=== PATIENT | female | born 1990 | race Caucasian/White ===

== ENCOUNTER → 2022-12-09 | Emergency (ER) | payer SELFPAY ==
[2022-12-09 21:22] VITALS: BP 159/89; PULSE 76; RESP 18; TEMP 36.3; O2SAT 98
[2022-12-09 21:38] LABS: Basophils Absolute Auto 0.1 K/mm3 (0.0-0.1); Basophils Percent Auto 0.5 % (0.2-1.2); Eosinophils Absolute Auto 0.3 K/mm3 (0-0.3); Eosinophils Percent Auto 1.4 % (0-4.4); Hematocrit 42.1 % (37.0-47.0); Hemoglobin 15.2 g/dL (12.0-15.0); Immature Granulocyte Absolute 0.08 K/mm3 (0.00-0.031); Immature Granulocyte Percent A 0.4 % (0-0.5); Lymphocytes Absolute Auto 3.47 K/mm3 (0.9-3.2); Mean Corpuscular HGB Conc 36.1 g/dl (32-36); Mean Corpuscular Hemoglobin 31.3 pg (26-34); Mean Corpuscular Volume 86.6 fl (80-100); Mean Platelet Volume 9.8 fl (7.4-10.4); Monocytes Absolute Auto 1.1 K/mm3 (0.1-0.6); Monocytes Percent Auto 6.1 % (2.6-8.5); Neutrophils Absolute Auto 13.2 K/mm3 (1.3-6.7); Neutrophils Percent Auto 72.6 % (45.5-73.1); Platelet Count Result 233 k/mm3 (150-375); Red Blood Count 4.86 M/mm3 (4.2-5.4); Red Cell Distribution Width 13.1 % (11.5-14.5); White Blood Count 18.3 K/mm3 (4.5-10.0)
[2022-12-09 21:49] LABS: Alanine Aminotransferase 41 U/L (6-35); Albumin Level 4.2 g/dL (3.5-5.1); Alkaline Phosphatase 125 U/L (38-126); Anion Gap 7 mmol/L (8-16); Aspartate Amino Transferase 43 U/L (14-36); Bilirubin,Total 1.5 mg/dL (0.2-1.3); Blood Urea Nitrogen 11 mg/dL (7-17); Calcium 8.7 mg/dL (8.4-10.2); Carbon Dioxide 23 mmol/L (22-30); Chloride 107 mmol/L (98-107); Estimated CRCL calculation 143 ml/min; Estimated Glomerular Filt Rate > 60; Glucose 115 mg/dL (65-110); Lipase 195 U/L (23-300); Potassium 3.4 mmol/L (3.4-5.0); Sodium 137 mmol/L (137-145)
[2022-12-09 22:09] LABS: Appearance Urine Turbid (Clear); Bacteria Urine 4+ /hpf; Bilirubin Urine Negative (Negative); Blood Urine 3+ (Negative); Color Urine Dark Yellow (Yellow); Glucose Urine UA Negative (Negative); Hyaline Casts Urine Present /lpf; Ketones Urine Negative (Negative); Leukocyte Esterase Ur 2+ LEU/UL (Negative); Nitrate Urine Negative (Negative); Protein Urine 1+ mg/dL (Negative); RBC Urine >100 /hpf (0-2); Squamous Epithelial Cell Urine Moderate /hpf (Few); WBC Urine 21-50 /hpf; pH Urine 6.5 (5.0-9.0)
[2022-12-09 22:11] LABS: Add Urine Microscopic? YES
--- NOTE | 2022-12-09 22:15 | PC.NURSE ---
Patient up to triage to ask about the wait. Patient informed of how many patient were in the waiting room but it was communicated that wait times can not be predicated due to the very nature of the ER. Patient stated I'm not waiting here. I'm in too much pain. Patient ambulatory. Respirations regular and non-labored. Skin pink. Patient speaking in full sentences. Encouraged to stay for evaluation but she declined. Patient was encouraged to return with any worsening symptoms or additional concerns.
== END | disposition left against medical advice (07) ==
PROVIDERS: Emergency Provider Preventive Medicine Aerospace Medicine
DX: R10.9 Unspecified abdominal pain (principal)
CPT/HCPCS: 36415; 80053; 81001; 83690; 85025; 87086; 87088; 99199

== ENCOUNTER 2023-03-22 18:22 | Inpatient (IN) | payer MEDICAID, SELFPAY ==
[2023-03-22] VITALS (8 sets, daily range): BP systolic 137–151; BP diastolic 95–102; PULSE 97–106; RESP 12–17; TEMP 36.4; O2SAT 97–100
--- NOTE | 2023-03-22 21:31 | ECG_ITS ---
Measurements Intervals [place] Rate: 100 P: 77 SD: 150 QRS: 40 QRSD: 105 T: 26 QT: 333 QTc: 429 Interpretive Statements SINUS TACHYCARDIA DELAYED PRECORDIAL R/S TRANSITION BASELINE ARTIFACT- I, III, AVR, AVL, AVF, V1-V6 BORDERLINE ECG NO PREVIOUS ECG AVAILABLE FOR COMPARISON Electronically Signed On 03-23-2023 7:11:08 CDT by Francisco Alcantara D.O.
[2023-03-22 21:42] LABS: Basophils Absolute Auto 0.1 K/mm3 (0.0-0.1); Basophils Percent Auto 1.1 % (0.2-1.2); Eosinophils Absolute Auto 0.2 K/mm3 (0-0.3); Eosinophils Percent Auto 2.7 % (0-4.4); Hematocrit 54.1 % (37.0-47.0); Hemoglobin 18.6 g/dL (12.0-15.0); Immature Granulocyte Absolute 0.01 K/mm3 (0.00-0.031); Immature Granulocyte Percent A 0.1 % (0-0.5); Lymphocytes Absolute Auto 2.76 K/mm3 (0.9-3.2); Lymphocytes Percent Auto 39.1 % (18.3-44.2); Mean Corpuscular HGB Conc 34.4 g/dl (32-36); Mean Corpuscular Hemoglobin 30.8 pg (26-34); Mean Corpuscular Volume 89.6 fl (80-100); Mean Platelet Volume 9.4 fl (7.4-10.4); Monocytes Absolute Auto 0.6 K/mm3 (0.1-0.6); Monocytes Percent Auto 9.1 % (2.6-8.5); Neutrophils Absolute Auto 3.4 K/mm3 (1.3-6.7); Neutrophils Percent Auto 47.9 % (45.5-73.1); Platelet Count Result 204 k/mm3 (150-375); Red Blood Count 6.04 M/mm3 (4.2-5.4); Red Cell Distribution Width 18.5 % (11.5-14.5); White Blood Count 7.1 K/mm3 (4.5-10.0)
[2023-03-22 21:49] LABS: Appearance Urine Cloudy (Clear); Bacteria Urine 4+ /hpf; Bilirubin Urine Negative (Negative); Blood Urine 2+ (Negative); Color Urine Dark Yellow (Yellow); Glucose Urine UA Negative (Negative); Ketones Urine Negative (Negative); Leukocyte Esterase Ur 3+ LEU/UL (Negative); Nitrate Urine Negative (Negative); Non Pathogenic Casts 0-2; Protein Urine 1+ mg/dL (Negative); RBC Urine 0-2 /hpf (0-2); Squamous Epithelial Cell Urine Moderate /hpf (Few); WBC Urine 21-50 /hpf; pH Urine 6.5 (5.0-9.0)
[2023-03-22 21:50] LABS: Add Urine Microscopic? YES
[2023-03-22 21:53] LABS: Alanine Aminotransferase 213 U/L (6-35); Albumin Level 4.7 g/dL (3.5-5.1); Alkaline Phosphatase 161 U/L (38-126); Anion Gap 11 mmol/L (8-16); Aspartate Amino Transferase 386 U/L (14-36); Bilirubin,Total 2.2 mg/dL (0.2-1.3); Blood Urea Nitrogen 4 mg/dL (7-17); Calcium 8.9 mg/dL (8.4-10.2); Carbon Dioxide 30 mmol/L (22-30); Chloride 102 mmol/L (98-107); Estimated Glomerular Filt Rate > 60; Glucose 103 mg/dL (65-110); Partial Thromboplastin Time 27.1 SECONDS (22.3-36.8); Potassium 3.2 mmol/L (3.4-5.0); Prothrombin Time 13.9 Seconds (11.1-14.7); Sodium 143 mmol/L (137-145)
[2023-03-22 23:08] LABS: Ethanol 369 mg/dL (<10)
[2023-03-22] MEDS: CEPHALEXIN 500 MG CAPSULE PO (23:10)
[2023-03-22] MEDS: FAMOTIDINE 20 MG TABLET PO (23:10)
[2023-03-22] MEDS: SODIUM CHLORIDE 0.9% IV 1,000 ML 999 ML IV CONT (23:11)
[2023-03-22] MEDS: diazePAM INJ (*CRX) 10 MG/2 ML SYRINGE IV PUSH (23:11)
[2023-03-22] MEDS: POTASSIUM CHLORIDE 20 MEQ PACKET (FOR LIQUID) 40 MEQ PO (23:11)
--- NOTE | 2023-03-22 23:25 | ED.GENADULT ---
HPI - General Adult General Chief complaint: Alcohol Stated complaint: etoh Time Seen by Provider: 03/22/23 21:59 History of Present Illness HPI narrative: This is a 32-year-old female presenting to ED with chief complaint of alcohol use disorder. Patient says that she has been binge drinking for the last 3 days. She is here because she wants to get help because she would like to stop drinking. Patient says she has been drinking about a 5th every day and drink a 5th before she arrived here today. Patient states that sometimes she will get shaky when she stops drinking but has never been hospitalized for withdrawal. Patient denies SI or HI but is complaining of anxiety. Patient has some epigastric abdominal discomfort. No nausea or vomiting. No other complaints Related Data Allergies Allergy/AdvReac Type Severity Reaction Status Date / Time amoxicillin Allergy Hives Verified 12/09/22 21:12 [facility] Past Medical History Medical History ETOHism Exam Narrative: APPEARANCE: No apparent distress. the patient is A&O x4. Head: atraumatic. EYES: EOMI, NOSE: Atraumatic NECK: Trachea midline RESPIRATORY: No increased rate of breathing Clear to auscultation CARDIOVASCULAR: RRR, ABDOMINAL: Non-distended, obese with mild tenderness in the epigastric area with no guarding or rebound MUSCULOSKELETAl: No obvious deformities NEURO: Alert. Moving 4/4 extremities SKIN:: Warm, dry. Normal color PSYCHIATRIC: anxious Course Course Emergency Course: Patient arrived highly intoxicated. She was originally given IV fluids, potassium repletion, and Valium for her anxiety. We were unable to find someone to pick her up to take her home. Eventually around 4:30 a.m. she developed tremors and had a CIWA score of 12. Patient is given 500 mg of phenobarbital. She will be admitted to the hospital for further management Vital Signs Vital signs: Vital Signs Temperature 97.6 F 03/22/23 18:44 Pulse Rate 102 H 03/22/23 18:44 Respiratory Rate 17 03/22/23 18:44 Blood Pressure 147/102 H 03/22/23 18:44 Pulse Oximetry 100 03/22/23 18:44 Oxygen Delivery Room Air 03/22/23 18:44 Temperature 97.6 F 03/22/23 18:44 Pulse Rate 108 H 03/23/23 04:12 Respiratory Rate 20 03/23/23 04:12 Blood Pressure 156/111 H 03/23/23 04:12 Pulse Oximetry 100 03/23/23 04:12 Oxygen Delivery Room Air 03/22/23 18:44 Medical Decision Making MDM Narrative Medical decision making narrative: -Presentation: 32-year-old female presenting intoxicated. She wants help with her alcohol use disorder. She is concerned for withdrawal although at this time she has no symptoms of withdrawal. -DDX includes but is not limited to: Alcohol intoxication, alcoholic ketoacidosis, alcoholic gastritis, alcoholic hepatitis, anxiety -Co-morbidities complicating care: obesity, alcohol use disorder -Social determinants of health: unemployed due to alcohol use, lives with her mother -External Chart Review: none -Hx from independent Sources: none -Independent interpretation of studies: CBC showed hemoglobin of 18.6 which is likely due to hemoconcentration. Metabolic panel shows elevations in AST ALT in an alcohol abuse pattern. Urine is indicative infection in the patient be treated with Keflex. Alcohol is elevated at 369. Independent EKG interpretation: Rhythm [sinus], Rate [100], [place] -[normal], AR -[normal], QRS [narrow], QTC [normal], T waves -[negative for concerning inversions], ST Segments - [Negative for concerning elevations] Final interpretations: [Normal Sinus Rhythm] -Discussion of Management/ Consultants: Dr. [place] - Hospitalist -Dx tests considered but not ordered: none -Procedures: -Interventions: 2 L normal saline, 40 mEq potassium, 10 mg Valium, Cephalexin 500mg 500 mg phenobarbital, 150cc/hr LR, CIWA protocol ordered. -Shared decision making /
[2023-03-23] VITALS (16 sets, daily range): BP systolic 141–176; BP diastolic 85–111; PULSE 85–126; RESP 14–20; TEMP 36.5–37.1; O2SAT 97–100; BMI 37.4
[2023-03-23] MEDS: SODIUM CHLORIDE 0.9% IV 1,000 ML 999 ML IV CONT (05:37)
[2023-03-23] MEDS: LACTATED RINGERS 1,000 ML 150 ML IV CONT (07:08)
--- NOTE | 2023-03-23 07:35 | ADMGEN ---
This patient, Sujey Palmer, was admitted to IMU Room 214-01. Patient/family oriented to hospital policies and general routines including ID bracelet, bed and alarms, visiting hours, pain management, procedures, bathroom and other care routines, personal items, smoking policy, room service/diet, and visiting hours. Information on how to activate the Rapid Response Team has been discussed. Patient/Family are encouraged to report perceived risks to care and to ask questions if they do not understand what they are told or what they should do.
[2023-03-23] MEDS: ONDANSETRON INJ 4 MG/2 ML VIAL IV PUSH ×3 (07:57→22:58)
[2023-03-23] MEDS: LORazepam INJ (*CRX) 2 MG/ML VIAL IV PUSH ×3 (07:57→20:04)
[2023-03-23 09:56] LABS: Anion Gap 6 mmol/L (8-16); Blood Urea Nitrogen 4 mg/dL (7-17); Calcium 8.1 mg/dL (8.4-10.2); Carbon Dioxide 25 mmol/L (22-30); Chloride 106 mmol/L (98-107); Estimated CRCL calculation 171 ml/min; Estimated Glomerular Filt Rate > 60; Glucose 92 mg/dL (65-110); Potassium 3.4 mmol/L (3.4-5.0); Sodium 137 mmol/L (137-145)
[2023-03-23] MEDS: chlordiazePOXIDE (*CRX) 25 MG CAPSULE PO ×2 (12:15→20:03)
--- NOTE | 2023-03-23 12:52 | PM.IMHP ---
H&P: HPI History of Present Illness Date/Time: 03/23/23 12:52 Chief Complaint: This is a 32-year-old female presenting to ED with chief complaint of alcohol use disorder.? Patient says that she has been binge drinking for the last 3 days.? She is here because she wants to get help because she would like to stop drinking.? Patient says she has been drinking about a 5th every day and drink a 5th before she arrived here today.? Patient states that sometimes she will get shaky when she stops drinking but has never been hospitalized for withdrawal.? Patient denies SI or HI ? Patient has some epigastric abdominal discomfort.? No nausea or vomiting.? No other complaints PMFSH Past Medical History Medical History ETOHism Family History Family History Sibling Congenital heart defect Mother Hypertension Social History Social History Smoking packs per day: 0.5 Smoking cigarettes per day: 10.0 Years smoked: 12 Smoking pack-years: 6.00 Smoking status: Current every day smoker Alcohol intake: current Drinks per week: 40 Substance use: current Substance use type: marijuana Lack of Transportation: No Lack of Food: Often True Current Housing: I Have Housing Concerned About Future Housing: No Difficulty Paying Gas/Electric Bills: No Difficulty Paying for Meds: No Currently Unemployed: YES Education: Decline to Answer Difficulty w/ Childcare or Family Care: No Spiritual care concerns: No Meds Home Medications and Allergies Home Medications Medication Instructions Recorded Confirmed Type No Home Medications 03/23/23 03/23/23 History Allergies Allergy/AdvReac Type Severity Reaction Status Date / Time amoxicillin Allergy Hives Verified 12/09/22 21:12 Vital Signs Vital Signs - 24 hr 03/22/23 18:44 03/22/23 20:25 03/22/23 23:12 Temperature 97.6 F Pulse Rate 102 H 106 H 103 H Pulse Rate [Monitor] Respiratory Rate 17 14 17 Blood Pressure 147/102 H 151/97 H 137/95 H Pulse Oximetry 100 97 100 Oxygen Delivery Room Air 03/23/23 04:12 03/22/23 22:00 03/22/23 22:15 Temperature Pulse Rate 108 H 97 104 H Pulse Rate [Monitor] Respiratory Rate 20 12 Blood Pressure 156/111 H Pulse Oximetry 100 Oxygen Delivery 03/22/23 22:30 03/22/23 23:13 03/22/23 23:15 Temperature Pulse Rate 106 H 104 H 104 H Pulse Rate [Monitor] Respiratory Rate 16 17 Blood Pressure 137/95 H Pulse Oximetry Oxygen Delivery 03/23/23 06:51 03/23/23 07:01 03/23/23 07:46 Temperature Pulse Rate 94 95 Pulse Rate [Monitor] 111 H Respiratory Rate 16 14 Blood Pressure 153/105 H 148/97 H Pulse Oximetry 100 99 Oxygen Delivery 03/23/23 08:00 03/23/23 09:13 03/23/23 08:00 Temperature 97.7 F Pulse Rate 107 H 99 Pulse Rate [Monitor] Respiratory Rate 18 Blood Pressure 153/102 H Pulse Oximetry 97 97 Oxygen Delivery Room Air 03/23/23 10:00 03/23/23 12:00 Temperature 98.6 F Pulse Rate 126 H 96 Pulse Rate [Monitor] Respiratory Rate 18 Blood Pressure 159/92 H Pulse Oximetry 98 Oxygen Delivery Exam Narrative: General: alert and oriented Psych: appropriate mood nad affect Eyes: PERRLA Neck: Trachea midline, no new lesions Skin: no changes Lungs: CTA Cardiac: Normal S1,S2, no MGR ABD: soft, nd, nt, nbs Ext: no new lesions, no cce Vasc: Pulses intact H&P: Results Labs Labs: Short CBC 03/22/23 Range/Units 21:35 WBC 7.1 (4.5-10.0) K/mm3 Hgb 18.6 H D (12.0-15.0) g/dL Hct 54.1 H (37.0-47.0) % Plt Count 204 (150-375) k/mm3 BMP 03/22/23 03/23/23 21:35 09:20 Sodium 143 137 Potassium 3.2 L 3.4 Chloride 102 106 Carbon Dioxide 30 25 BUN 4 L D 4 L Creatinine 0.60 L 0.50 L Glucose 103 92 Calcium 8.9
[2023-03-23] MEDS: THERAPEUTIC MULTIVITAMINS/MINERALS TAB (*BKC) 1 TABLET PO (12:58)
[2023-03-23] MEDS: ACETAMINOPHEN 325 MG TABLET 650 MG PO ×2 (16:57→22:58)
[2023-03-23] MEDS: NICOTINE (*PBKC) 14 MG PATCH 1 PATCH TRANSDERM (17:26)
[2023-03-23 18:19] LABS: Glucose Point of Care 97 mg/dl (65-105)
[2023-03-23] MEDS: CEFDINIR 300 MG CAPSULE PO (20:03)
[2023-03-23 23:05] LABS: Glucose Point of Care 88 mg/dl (65-105)
[2023-03-24] VITALS (10 sets, daily range): BP systolic 153–163; BP diastolic 96–112; PULSE 77–97; RESP 16–20; TEMP 35.7–36.9; O2SAT 96–99
[2023-03-24] MEDS: chlordiazePOXIDE (*CRX) 25 MG CAPSULE PO ×2 (03:54→09:11)
[2023-03-24 04:39] LABS: Alanine Aminotransferase 159 U/L (6-35); Anion Gap 5 mmol/L (8-16); Aspartate Amino Transferase 282 U/L (14-36); Blood Urea Nitrogen 4 mg/dL (7-17); Calcium 8.6 mg/dL (8.4-10.2); Carbon Dioxide 29 mmol/L (22-30); Chloride 100 mmol/L (98-107); Estimated CRCL calculation 175 ml/min; Estimated Glomerular Filt Rate > 60; Glucose 79 mg/dL (65-110); Potassium 3.1 mmol/L (3.4-5.0); Sodium 134 mmol/L (137-145)
[2023-03-24] MEDS: THIAMINE HCL 200 MG/2 ML VIAL 100 MG IV PUSH (08:15)
[2023-03-24] MEDS: FOLIC ACID 1 MG TABLET PO (08:15)
[2023-03-24] MEDS: CEFDINIR 300 MG CAPSULE PO (08:16)
[2023-03-24] MEDS: NICOTINE (*PBKC) 14 MG PATCH 1 PATCH TRANSDERM (08:17)
[2023-03-24] MEDS: POTASSIUM CHLORIDE 20 MEQ ER TABLET 40 MEQ PO (08:17)
[2023-03-24] MEDS: THERAPEUTIC MULTIVITAMINS/MINERALS TAB (*BKC) 1 TABLET PO (12:05)
[2023-03-24 12:09] LABS: Glucose Point of Care 126 mg/dl (65-105)
--- NOTE | 2023-03-24 14:20 | PM.DS ---
DS: Admitting Diagnosis Discharge Date 03/24/23 Admitting Diagnosis Alcohol use disorder DS: Discharge Diagnosis Discharge Diagnosis (1) Alcoholic intoxication: Code(s): F10.929 - Alcohol use, unspecified with intoxication, unspecified Status: Acute (2) Alcohol withdrawal: Code(s): F10.939 - Alcohol use, unspecified with withdrawal, unspecified Status: Acute (3) Alcoholic hepatitis: Code(s): K70.10 - Alcoholic hepatitis without ascites Status: Acute DS: Summary Hospital Course Reason for hospitalization: 32yo female presents to the ED with chief complaint of alcohol use disorder.?Please see H&P for details. Hospital Course: Patient presented to the emergency room on March 22. Alcohol level was 369. Urine test was negative. Urinalysis was consistent with UTI and antibiotics were started. AST climbed to 386 for trending downward. ALT peaked to 213. Bilirubin level was 2.2. Lipase was normal. Potassium was low at times and this was replaced. PT and PTT were normal. White count platelet count normal. He will was elevated 18. She was given Valium and started on IV fluids. She had Ativan available as needed for signs or symptoms of withdrawal. She was treated with thiamine and folate. CIWA peaked at 19 but on the day of discharge trace CIWA was between 5-7. She overall did well. She was educated about the benefits of stain from alcohol use. She was given information about alcohol rehab. She was able be discharged home on 03/24/2023. Status at Discharge Cognitive/behavioral status at discharge: stable Time Spent with Patient Time attestation: Total time spent providing and/or coordinating discharge services: 35 minutes Exam Narrative: AF 98.5 163/101 95 16 99% ra Gen - NARD Chest - CTA bilaterally, nml RR CV - RRR S1/S2. Tele showing no significant dysrhthymias Abd - Soft, NT/ND, Positive BS Ext - No pedal edema Psych - Nml mood and affect Skin - Warm and dry DS: Data Data Completed and Pending Labs on day of discharge: Labs from last 24 hours 03/24/23 03/24/23 03/23/23 11:35 04:08 22:54 Sodium 134 L Potassium 3.1 L Chloride 100 Carbon Dioxide 29 Anion Gap 5 L BUN 4 L Creatinine 0.50 L Estim Creat Clear Calc 175 Estimated GFR > 60 Glucose 79 POC Capillary Glucose 126 H 88 Calcium 8.6 AST 282 H ALT 159 H 03/23/23 18:16 Sodium Potassium Chloride Carbon Dioxide Anion Gap BUN Creatinine Estim Creat Clear Calc Estimated GFR Glucose POC Capillary Glucose 97 Calcium AST ALT Discharge Plan Discharge Attending physician on discharge: Jaylon Geronimo Discharging Clinician: Jaylon Geronimo Anticipated Discharge Date/Time: 03/24/23 14:31 Patient Disposition: Home, Self-Care Activity: as tolerated Diet: regular Discharge Instructions: Please do not consume any products containing alcohol You are going home with a benzodiazepine prescription for your withdrawal. Use as prescribed. Dispose of properly if you no longer need the mediation such as dropping off at a Police Station or other appropriate location that takes medications. Do not drink alcohol, drive or use heavy machinery if using benzodiazepine Please complete your antibiotic course even if you are starting to feel well. Follow-up with your primary care provider in 1-2 weeks. Please call for appointment. Contact your doctor or call 911 and come to the Emergency Room if you have worsening withdrawal symptoms or other worrisome symptoms. Thank you for using [facility] for your health care needs. Patient Instructions: Antibiotic Form, How to Stop Smoking (DC), Cigarette Smoking and Your Health (GEN) Stand Alone Forms: General Discharge Information Follow-up/Referrals: PHYSICIAN NOT ON STAFF,NONSTAFF [Primary Care Provider] - Call for
--- NOTE | 2023-03-24 14:47 | PCCCNOTE ---
On 03/24/23, the student, [Sujey Barkley], provided care and completed [facility] documentation on this patient. I have reviewed the student's documentation and agree with the findings.
== END 2023-03-24 14:56 | disposition home or self-care (01) | DRG 775 ==
LOC: ANHED 03-23 05:14 → ANHIMU 03-23 06:58
PROVIDERS: Chiropractor; Admitting Provider Internal Medicine; Emergency Provider Emergency Medicine; Visit Provider Internal Medicine
DX: F10.239 Alcohol dependence with withdrawal, unspecified (principal); F10.229 Alcohol dependence with intoxication, unspecified; K70.10 Alcoholic hepatitis without ascites; E66.9 Obesity, unspecified; F17.210 Nicotine dependence, cigarettes, uncomplicated; N39.0 Urinary tract infection, site not specified; Z68.39 Body mass index [BMI] 39.0-39.9, adult; Y90.8 Blood alcohol level of 240 mg/100 ml or more
CPT/HCPCS: 36415; 80048; 80053; 80307; 81001; 81025; 82948; 84450; 84460; 85025; 85610; 85730; 87086; 87088; 93005; 96361; 96365; 96374; 99285; A9270; J2060; J2405; J2560; J3360; J3411; J3475; J7030; J7050; J7120

== ENCOUNTER 2024-07-31 07:58 | Emergency (ER) | payer SELFPAY ==
[2024-07-31 08:30] VITALS: BP 137/86; PULSE 89; RESP 17; TEMP 36.3; O2SAT 95
[2024-07-31 10:10] LABS: Add Urine Microscopic? YES; Appearance Urine Clear (Clear); Bacteria Urine None Seen /hpf; Bilirubin Urine Negative (Negative); Blood Urine Negative (Negative); Color Urine Yellow (Yellow); Glucose Urine UA Negative (Negative); Ketones Urine Negative (Negative); Leukocyte Esterase Ur Trace LEU/UL (Negative); Nitrate Urine Negative (Negative); Non Pathogenic Casts 0-2; Protein Urine Negative (Negative); RBC Urine 0-2 /hpf (0-2); Specific Grav Ur 1.009 (1.001-1.035); Squamous Epithelial Cell Urine None Seen /hpf (Few); WBC Urine 0-5 /hpf (0-3)
[2024-07-31] MEDS: metroNIDAZOLE 500 MG TABLET 2000 MG PO (10:12)
[2024-07-31] MEDS: DOXYCYCLINE HYCLATE 100 MG TABLET PO (10:12)
[2024-07-31] MEDS: LIDOCAINE HCL 1% LOCAL INJ 10 ML VIAL (10:12)
[2024-07-31] MEDS: cefTRIAXone 1 GM VIAL 0.5 GM IM (10:12)
--- NOTE | 2024-07-31 10:19 | ED.FEMALEGU ---
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 Patient reports she recently discovered that her ex-boyfriend tested positive for chlamydia. Her last sexual encounter with him was around 2 months ago. Patient would like to be tested and treated for STDs. She denies any significant symptoms. Denies abnormal vaginal discharge or bleeding, abdominal pain, dysuria, hematuria, fevers Related Data Allergies Allergy/AdvReac Type Severity Reaction Status Date / Time amoxicillin Allergy Hives Verified 07/31/24 09:55 Review of Systems Review of Systems: All systems reviewed & are unremarkable except as noted in HPI. All systems reviewed & are unremarkable except as noted in HPI and below PMFSH Past Medical History Medical History ETOHism Family History Family History Sibling Congenital heart defect Mother Hypertension Social History Social History Smoking packs per day: 0.5 Smoking cigarettes per day: 10.0 Years smoked: 12 Smoking pack-years: 6.00 Smoking status: Current every day smoker Alcohol intake: current Drinks per week: 40 Substance use: current Substance use type: marijuana Lack of Transportation: No Lack of Food: Often True Current Housing: I Have Housing Concerned About Future Housing: No Difficulty Paying Gas/Electric Bills: No Difficulty Paying for Meds: No Currently Unemployed: YES Education: Decline to Answer Difficulty w/ Childcare or Family Care: No Spiritual care concerns: No Exam Narrative: GENERAL: Well appearing, well-nourished, non-toxic, in no acute distress. HEAD: Normocephalic, atraumatic. RESPIRATORY: Airway patent, respirations nonlabored. CARDIOVASCULAR: Regular rate and rhythm MUSCULOSKELETAL: Moves all extremities. No gross deformities. SKIN: Warm, dry, normal color. NEURO: A&O X3. Speech clear. PSYCHIATRIC: Appropriate mood and affect. Normal interaction. Course Vital Signs Vital signs: Vital Signs Temperature 97.4 F L 07/31/24 08:30 Pulse Rate 89 07/31/24 08:30 Respiratory Rate 17 07/31/24 08:30 Blood Pressure 137/86 07/31/24 08:30 Pulse Oximetry 95 07/31/24 08:30 Oxygen Delivery Room Air 07/31/24 08:30 Temperature 97.4 F L 07/31/24 08:30 Pulse Rate 89 07/31/24 08:30 Respiratory Rate 17 07/31/24 08:30 Blood Pressure 137/86 07/31/24 08:30 Pulse Oximetry 95 07/31/24 08:30 Oxygen Delivery Room Air 07/31/24 08:30 MDM - Female Genitourinary MDM Narrative Medical decision making narrative: patient presented to ED with concern for STD exposure. Wanting to be tested and prophylactically treated. Vital signs are stable. Patient is asymptomatic. Exam is unremarkable. Urinalysis without evidence of infection. Sent for chlamydia, gonorrhea, Trichomonas testing. Patient given dose of IM Rocephin in the ED, 1st dose of doxycycline, 2 g dose of Flagyl. Doxycycline sent to pharmacy. Patient advised to utilize [id number] to look up results of STD testing, discussed safe sex practices, advised to notify all sexual partners and have partners tested/treated. given return precautions. Discharged in stable condition. Medical Records Attestation: I reviewed the patient's medical records. Lab Data Attestation: I reviewed the patient's lab results. Labs: Lab Results 07/31/24 Range/Units 09:57 Urine Color Yellow (Yellow) Urine Appearance Clear (Clear) Urine pH 7.0 (5.0-9.0) Ur Specific [place] 1.009 (1.001-1.035) Urine Protein Negative (Negative) mg/dL Urine Glucose (UA) Negative (Negative) mg/dL Urine Ketones Negative (Negative) mg/dL Ur Blood (Man) Negative (Negative) Urine Nitrate Negative (Negative) Urine Bilirubin Negative (Negative) Urine Urobilinogen 1.0 (<2.0) mg/dL Leukocyte Esterase Rfl Trace H (Negative) MICHAEL/UL Urine RBC 0-2 (0-2) /hpf Urine WBC 0-5 (0-3) /hpf Ur Squamous Epith Cells None seen (Few) /hpf Urine Bacteria None seen /hpf Urine Casts 0-2 Discharge Plan Discharge Clinical Impression: Encounter for assessment of STD exposure Patient Disposition: Home, Self-Care Condition: Stable Instructions: Antibiotic Form, Chlamydia (ED), Safe Sex Practices (ED), Gonorrhea (ED) Additional Instructions: Utilize [employer] patient portal to look up results of STD testing. Continue Doxycycline as directed and prescribed if testing is positive. Avoid further intercourse until completion of antibiotics and you receive a test of cure. It is recommended that you notify all sexual partners and have sexual partners receive testing as well. Return to the ED experience severe pain, abnormal vaginal bleeding, difficulty urinating, persistent fevers, or any other symptoms of concern. Prescriptions: New doxycycline monohydrate 100 mg tablet 100 mg PO BID 7 Days Qty: 14 0RF No Action chlordiazepoxide HCl 25 mg Capsule 25 mg PO Q6H PRN (Reason: WITHDRAWL) Qty: 8 0RF folic acid 1 mg Tablet 1 mg PO DAILY Qty: 30 0RF cefdinir 300 mg Capsule 300 mg PO Q12HR Qty: 8 0RF thiamine HCl (vitamin B1) 100 mg tablet 100 mg PO DAILY Qty: 30 0RF Follow-up/Referrals: PHYSICIAN,RANGE CONSERVATIONIST [Primary Care Provider] - Time of Disposition: 10:19
[2024-07-31 11:31] LABS: Trichomonas Vag PCR DETECTED (NOT DETECTE)
[2024-07-31 12:02] LABS: Chlamydia trachomatis DETECTED (NOT DETECTE); Neisseria gonorrhoeae PCR NOT DETECTED (NOT DETECTE)
== END 2024-07-31 12:10 | disposition home or self-care (01) ==
PROVIDERS: Emergency Provider Physician Assistant
DX: Z20.2 Contact with and (suspected) exposure to infections with a predominantly sexual mode of transmission (principal); Z11.3 Encounter for screening for infections with a predominantly sexual mode of transmission; F17.210 Nicotine dependence, cigarettes, uncomplicated
CPT/HCPCS: 81001; 87491; 87591; 87661; 96372; 99284; A9270; J0696; J2003